=== PATIENT | female | born 1975 | race American Indian/Alaskan Native ===

== ENCOUNTER 2017-02-16 14:43 | Emergency (ER) | payer SELFPAY ==
[2017-02-16 16:29] VITALS: BP 139/77
--- NOTE | 2017-02-16 18:06 | Emergency Department Report ---
Chief Complaint: Abdominal Pain Stated Complaint: ABD PAIN/SPOTTING/7 WKS PREG. Time Seen by Provider: 02/16/17 18:03 - HPI History of Present Illness: Patient reports that she started having abdominal pain and spotting since last night. She said blood is bright red blood and small spots. She says she is 7 weeks and this is been verified by OB doctor in [place]. She is pointing to her left lower quadrant for pain. Pain is 7 out of 10. Denies any urinary burning frequency or urgency. Denies any fever. She says she is always cold. She has a history of cardiac ablation. Last menstrual period was 12/23/2016. Pain to lower abdomen is 7 out of 10 and crampy. No over-the- counter medication taken. She did not notify her CHILD CAREGIVER. - ROS Review of Systems: All systems are negative unless stated in HPI above - Exam Vital Signs: Vital Signs 02/16/17 16:26 Temperature 98.1 F Pulse Rate 75 Respiratory 16 Rate Blood Pressure 139/77 O2 Sat by Pulse 100 Oximetry Physical Exam: Gen.: This is an 41-year-old female well-nourished well-developed in no acute distress Abdomen: Tender to palpate to left pelvic area. No guarding or rebound. No peritoneal signs. Positive bowel sounds in all quadrants. MSE screening note: Focused history and physical exam performed. Due to findings the following was ordered:see MDM ED Medical Decision Making - Medical Decision Making MDM: Patient screened by provider in triage area. Appropriate protocol initiated and patient to be seen in main ED by Dr. LUO Disposition for MSE Condition: Stable Instructions: Abdominal Pain (ED)
[2017-02-16 18:56] LABS: Basophils % (Auto) 0.6 % (0.0-1.8); Eosinophils % (Auto) 2.4 % (0.0-4.3); Hematocrit 38.5 % (30.3-42.9); Hemoglobin 12.6 gm/dl (10.1-14.3); Mean Corpuscular HGB Conc 33 % (30-34); Mean Corpuscular Hemoglobin 29 pg (28-32); Mean Corpuscular Volume 89 fl (79-97); Platelet Count 283 K/mm3 (140-440); Red Blood Count 4.33 M/mm3 (3.65-5.03); Red Cell Distribution Width 13.5 % (13.2-15.2); White Blood Count 8.4 K/mm3 (4.5-11.0)
[2017-02-16 19:12] LABS: Anion Gap 14 mmol/L; BUN/Creatinine Ratio 13; Blood Urea Nitrogen 8 mg/dL (7-17); Calcium 8.9 mg/dL (8.4-10.2); Carbon Dioxide 25 mmol/L (22-30); Chloride 102.3 mmol/L (98-107); Glucose 88 mg/dL (65-100); Potassium 3.8 mmol/L (3.6-5.0); Sodium 137 mmol/L (137-145)
== END 2017-02-17 06:45 | disposition left against medical advice (07) ==
LOC: ED 14:43
DX: O26.851 Spotting complicating pregnancy, first trimester (principal); O26.891 Other specified pregnancy related conditions, first trimester; R10.32 Left lower quadrant pain; Z3A.01 Less than 8 weeks gestation of pregnancy; Z53.21 Procedure and treatment not carried out due to patient leaving prior to being seen by health care provider
CPT/HCPCS: 36415; 80048; 84702; 84703; 85025; 86850; 86900; 86901

== ENCOUNTER 2017-09-08 17:22 | Emergency (ER) | payer SELFPAY ==
--- NOTE | 2017-09-09 | Emergency Department Report ---
ED Female HPI - General Chief complaint: Back Pain/Injury Stated complaint: UPPER/LOWER BACK PAIN Time Seen by Provider: 09/08/17 23:51 Source: patient Mode of arrival: Ambulatory Limitations: No Limitations - History of Present Illness Initial comments: This is a 42 y.o. female that presents with low back pain for 2 weeks. Patient reports going to labor and deliver earlier today and brought here for evaluation. She was told last year she is having a cryptic . Reports pain to lower back that is intermittent. Her LMP 11/28/2014. She is currently spotting. She reports being and she is not crazy. Denies passing blood clots, abdominal pain, vaginal discharge, chest pain, frequency, urgency, or dysuria. MD Complaint: other (low back pain) -: week(s) (2 weeks) Radiation: non-radiating Severity: moderate Severity scale (0 -10): 7 Quality: sharp, aching Consistency: intermittent Improves with: none Worsens with: movement Are you Now?: Yes Last Menstrual Period: 11/28/14 EDC: 09/04/15 Associated Symptoms: denies: vaginal discharge, abdominal pain, nausea/vomiting , fever/chills, headaches, loss of appetite, dysuria, hematuria, seizure, shortness of breath, syncope, weakness - Related Data Sexually active: Yes : 4 Para: 3 A: 0 Previous Rx's Medication Instructions Recorded Last Taken Type Nitrofurantoin Macrocrystal 100 mg PO BID 5 Days #10 capsule 09/09/17 Unknown Rx [Macrodantin] Allergies Allergy/AdvReac Type Severity Reaction Status Date / Time No Known Allergies Allergy Verified 09/08/17 17:25 ED Review of Systems ROS: Stated complaint: UPPER/LOWER BACK PAIN Other details as noted in HPI Constitutional: denies: chills, fever Respiratory: denies: cough, shortness of breath, wheezing Cardiovascular: denies: chest pain, palpitations Gastrointestinal: denies: abdominal pain, nausea, diarrhea Genitourinary: abnormal menses (spotting every month, twice a month). denies: urgency, dysuria, frequency, discharge Musculoskeletal: back pain (low back pain). denies: joint swelling, arthralgia Skin: denies: rash, lesions Psychiatric: denies: anxiety, depression ED Past Medical Hx - Past Medical History Additional medical history: ablation - Social History Smoking Status: Never Smoker Substance Use Type: None - Medications Home Medications: Home Medications Medication Instructions Recorded Confirmed Last Taken Type Nitrofurantoin Macrocrystal 100 mg PO BID 5 Days #10 capsule 09/09/17 Unknown Rx [Macrodantin] ED Physical Exam - General Limitations: No Limitations General appearance: alert, in no apparent distress - Respiratory Respiratory exam: Present: normal lung sounds bilaterally. Absent: respiratory distress, wheezes, rales, rhonchi, stridor, accessory muscle use - Cardiovascular Cardiovascular Exam: Present: regular rate, normal rhythm, normal heart sounds. Absent: systolic murmur, diastolic murmur, rubs, gallop - GI/Abdominal GI/Abdominal exam: Present: soft, normal bowel sounds. Absent: distended, tenderness, guarding, rebound, rigid, organomegaly, mass - Back Exam Back exam: Present: normal inspection, full ROM, CVA tenderness (L). Absent: CVA tenderness (R), rash noted - Psychiatric Psychiatric exam: Present: normal affect, normal mood - Skin Skin exam: Present: warm, dry, intact, normal color. Absent: rash ED Course Vital Signs 09/08/17 09/09/17 17:25 01:47 Temperature 99.4 F 98.7 F Pulse Rate 90 67 Respiratory 18 16 Rate Blood Pressure 149/108 Blood Pressure 126/84 [Right] O2 Sat by Pulse 98 100 Oximetry ED Medical Decision Making - Medical Decision Making 42 y.o. female that presents with low back pain that is associated with cryptic . Patient examined by me and stable. No distress noted. Vitals stable. Obtained UA, hcg quant. Start nitrofurantoin 100 mg po bid x 5 days. Discharged home. Encouraged to f/u with T[facility] HOUSE OPERATOR to r/o cryptic . Critical care attestation.: If time is entered above; I have spent that time in minutes in the direct care of this critically ill patient, excluding procedure time. ED Disposition Clinical Impression: Acute cystitis Qualifiers: Hematuria presence: without hematuria Qualified Code(s): N30.00 - Acute cystitis without hematuria Disposition: TO HOME OR SELFCARE Is pt being admited?: No Does the pt Need Aspirin: No Condition: Stable Instructions: Urinary Tract Infection in Women (ED) Additional Instructions: Increase fluid intake. Follow up with primary care provider in 2-3 days. Follow up with T[facility] HOUSE [facility]. Prescriptions: Nitrofurantoin Macrocrystal [Macrodantin] 100 mg PO BID 5 Days #10 capsule Referrals: [facility] [Outside] - 3-5 Days ARIES GONZALEZ MD [Staff Physician] - 3-5 Days [facility] [Provider Group] - 3-5 Days Time of Disposition: 01:37 Print Language: CYMRAES
[2017-09-09 00:45] LABS: Bacteria,Urine 4+ /HPF (Negative); Bilirubin,Urine NEG (Negative); Blood,Urine NEG (Negative); Color,Urine Yellow (Yellow); Hyaline Casts,Urine 1 /LPF; Mucus,Urine 2+ /HPF; Protein,Urine <15 mg/dL mg/dL (Negative); Urobilinogen,Urine < 2.0 mg/dL (<2.0)
[2017-09-09 01:48] VITALS: BP 126/84
== END 2017-09-09 01:55 | disposition home or self-care (01) ==
LOC: ED 17:22
DX: N30.00 Acute cystitis without hematuria (principal)
CPT/HCPCS: 36415; 81001; 84703; 99283

== ENCOUNTER 2018-11-28 08:19 | Emergency (ER) | payer OTHER ==
[2018-11-28] MEDS ORDERED: NACL 0.9% 1000 ML 1,000 ML IV ONE (09:02)
[2018-11-28] MEDS ORDERED: ZOFRAN IV ONE (09:02)
[2018-11-28] MEDS ORDERED: MORPHINE IV ONE (09:02)
[2018-11-28 09:36] LABS: Basophils # (Auto) 0.1 K/mm3 (0.0-0.1); Basophils % (Auto) 0.5 % (0.0-1.8); Eosinophils # (Auto) 0.1 K/mm3 (0.0-0.4); Eosinophils % (Auto) 0.6 % (0.0-4.3); Hematocrit 36.2 % (30.3-42.9); Hemoglobin 12.1 gm/dl (10.1-14.3); Lymphocytes # (Auto) 1.5 K/mm3 (1.2-5.4); Mean Corpuscular HGB Conc 33 % (30-34); Mean Corpuscular Volume 86 fl (79-97); Monocytes # (Auto) 0.4 K/mm3 (0.0-0.8); Monocytes % (Auto) 3.7 % (0.0-7.3); Platelet Count 319 K/mm3 (140-440)
--- NOTE | 2018-11-28 09:54 | Emergency Department Report ---
ED General Adult HPI - General Chief complaint: Pain General Stated complaint: BODY PAIN Time Seen by Provider: 11/28/18 09:01 Source: patient, EMS Mode of arrival: Ambulatory Limitations: No Limitations - History of Present Illness Initial comments: This is a 43-year-old female nontoxic, well nourished in appearance, no acute signs of distress presents to the ED with c/o of generalized body aches and nausea 2 days. Patient denies any vomiting. Patient denies any cough or urinary symptoms. Denies any other complaints. Patient denies any abdominal pain, chest pain, short of breath, fever, chills, headache, stiff neck, numbness or tingling. Patient denies any diarrhea or constipation. Patient denies any recent travels. Patient denies any drug allergies significant past medical history. -: days(s) (2) Radiation: non-radiation Severity scale (0 -10): 8 Quality: aching Consistency: constant Improves with: none Worsens with: none Associated Symptoms: nausea/vomiting. denies: confusion, chest pain, cough, diaphoresis, fever/chills, headaches, loss of appetite, malaise, rash, seizure, shortness of breath, syncope, weakness Treatments Prior to Arrival: none - Related Data Previous Rx's Medication Instructions Recorded Last Taken Type Ibuprofen [Motrin 800 MG tab] 800 mg PO Q8H PRN #20 tablet 06/03/15 Unknown Rx Nitrofurantoin Macrocrystal 100 mg PO BID 5 Days #10 capsule 09/09/17 Unknown Rx [Macrodantin] Ibuprofen [Motrin] 600 mg PO Q8H PRN #20 tablet 11/28/18 Unknown Rx Ondansetron [Zofran Odt] 4 mg PO Q8HR PRN #20 tab.rapdis 11/28/18 Unknown Rx Allergies Allergy/AdvReac Type Severity Reaction Status Date / Time No Known Allergies Allergy Verified 09/08/17 17:25 ED Review of Systems ROS: Stated complaint: BODY PAIN Other details as noted in HPI Constitutional: denies: chills, fever Eyes: denies: eye pain, eye discharge, vision change ENT: denies: ear pain, throat pain Respiratory: denies: cough, shortness of breath, wheezing Cardiovascular: denies: chest pain, palpitations Endocrine: no symptoms reported Gastrointestinal: nausea. denies: abdominal pain, diarrhea Genitourinary: denies: urgency, dysuria, discharge Musculoskeletal: denies: back pain, joint swelling, arthralgia Skin: denies: rash, lesions Neurological: denies: headache, weakness, paresthesias Psychiatric: denies: anxiety, depression Hematological/Lymphatic: denies: easy bleeding, easy bruising ED Past Medical Hx - Past Medical History Previous Medical History?: Yes Hx Hypertension: Yes Hx Diabetes: No Hx Deep Vein Thrombosis: No Hx Renal Disease: No Hx Sickle Cell Disease: No Hx Seizures: No Hx Asthma: No Hx HIV: No Additional medical history: ablation - Surgical History Past Surgical History?: Yes Additional Surgical History: heart ablation - Social History Smoking Status: Never Smoker Substance Use Type: None - Medications Home Medications: Home Medications Medication Instructions Recorded Confirmed Last Taken Type Ibuprofen [Motrin 800 MG tab] 800 mg PO Q8H PRN #20 tablet 06/03/15 Unknown Rx Nitrofurantoin Macrocrystal 100 mg PO BID 5 Days #10 capsule 09/09/17 Unknown Rx [Macrodantin] Ibuprofen [Motrin] 600 mg PO Q8H PRN #20 tablet 11/28/18 Unknown Rx Ondansetron [Zofran Odt] 4 mg PO Q8HR PRN #20 tab.rapdis 11/28/18 Unknown Rx ED Physical Exam - General Limitations: No Limitations General appearance: alert, in no apparent distress - Head Head exam: Present: atraumatic, normocephalic - Neck Neck exam: Present: normal inspection, full ROM. Absent: tenderness, meningismus, lymphadenopathy - Respiratory Respiratory exam: Present: normal lung sounds bilaterally. Absent: respiratory distress, wheezes, rales, rhonchi, stridor, chest wall tenderness, accessory muscle use, decreased breath sounds, prolonged expiratory - Cardiovascular Cardiovascular Exam: Present: regular rate, normal rhythm, normal heart sounds. Absent: bradycardia, tachycardia, irregular rhythm, systolic murmur, diastolic murmur, rubs, gallop - GI/Abdominal GI/Abdominal exam: Present: soft, normal bowel sounds. Absent: distended, tenderness, guarding, rebound, rigid, diminished bowel sounds - Extremities Exam Extremities exam: Present: normal inspection, full ROM, normal capillary refill. Absent: tenderness - Back Exam Back exam: Present: normal inspection, full ROM. Absent: tenderness, CVA tenderness (R), CVA tenderness (L), muscle spasm, paraspinal tenderness, vertebral tenderness, rash noted - Neurological Exam Neurological exam: Present: alert, oriented X3, normal gait - Psychiatric Psychiatric exam: Present: normal affect, normal mood - Skin Skin exam: Present: warm, dry, intact, normal color. Absent: rash ED Course Vital Signs 11/28/18 11/28/18 11/28/18 08:47 09:42 09:46 Temperature 98.3 F Pulse Rate 74 Respiratory 18 20 20 Rate Blood Pressure 137/87 O2 Sat by Pulse 98 Oximetry - Reevaluation(s) Reevaluation #1: 11/28/18 09:55 Patient is speaking in full sentences with no signs of distress noted. ED Medical Decision Making - Lab Data Result diagrams: 11/28/18 09:22 11/28/18 09:22 - Medical Decision Making This is a 43-year-old female that presents with nausea and generalized body aches. Patient is stable and was examined by me. There is no abdominal tenderness. Negative signs of symptoms of appendicitis. Labs obtained. UA obtained. Chest/abdomen xray obtained and dictated by the radiologist. Patient is notified of the report with no questions noted by the patient. Vital signs are stable prior to discharge. Patient received Zofran, morphine, and 1L Normal saline in the ED which patient stated symptoms has resolved and subsided. A by mouth challenge has been obtained and patient tolerated well with no nausea vomiting. Patient was also instructed to Follow-up with a primary care doctor in 3-5 days or if symptoms worsen and continue return to emergency room as soon as possible. At time of discharge, the patient does not seem toxic or ill in appearance. No acute signs of distress noted. Patient agrees to discharge treatment plan of care. No further questions noted by the patient. Critical care attestation.: If time is entered above; I have spent that time in minutes in the direct care of this critically ill patient, excluding procedure time. ED Disposition Clinical Impression: Generalized body aches, Nausea Disposition: [id number]-01 TO HOME OR SELFCARE Is pt being admited?: No Does the pt Need Aspirin: No Condition: Stable Additional Instructions: Follow-up with a primary care doctor in 3-5 days or if symptoms worsen and continue return to emergency room as soon as possible. Prescriptions: Ibuprofen [Motrin] 600 mg PO Q8H PRN #20 tablet PRN Reason: Pain/Fever Ondansetron [Zofran Odt] 4 mg PO Q8HR PRN #20 tab.rapdis PRN Reason: Nausea [facility] [Primary Care Provider[facility] - 3-5 Days [facility] [Referring] - 3-5 Days QUITA PARK MD [Staff Physician] - 3-5 Days [facility] [Outside] - 3-5 Days [facility] [Outside] - 3-5 Days Forms: Work/School Release Form(ED)
[2018-11-28 10:01] LABS: Alanine Aminotransferase 7 units/L (7-56); Albumin 3.8 g/dL (3.9-5); BUN/Creatinine Ratio 11; Blood Urea Nitrogen 9 mg/dL (7-17); Calcium 8.7 mg/dL (8.4-10.2); Hemolysis Index 5
[2018-11-28 10:52] LABS: Bacteria,Urine 1+ /HPF (Negative); Bilirubin,Urine NEG (Negative); Blood,Urine MOD (Negative); Color,Urine Yellow (Yellow); Mucus,Urine FEW /HPF; Protein,Urine <15 mg/dL mg/dL (Negative); Urobilinogen,Urine < 2.0 mg/dL (<2.0)
--- NOTE | 2018-11-28 12:43 | XRay Report ---
Acute abdomen series 3 views 1123 INDICATION: Nausea, vomiting, headache Lung suazo are clear. Heart size and pulmonary vascularity appear within normal limits. No pneumoper itoneum is seen. Calcifications in the left pelvis probably are vascular. Upright views show no air-f luid levels. Mild increase in small bowel gas is noted with borderline dilatation seen. Gas is noted in the colon. Bowel gas pattern is nonspecific and not clearly obstructive. Signer Name: John Kinsey MD Signed: 11/28/2018 12:39 PM Workstation Name: [email or web address]
[2018-11-28 13:09] VITALS: BP 140/73
== END 2018-11-28 13:33 | disposition home or self-care (01) ==
LOC: ED 08:19
DX: M79.10 Myalgia, unspecified site (principal); R11.2 Nausea with vomiting, unspecified; I10 Essential (primary) hypertension; Z79.899 Other long term (current) drug therapy
CPT/HCPCS: 36415; 74022; 80053; 81001; 83690; 84703; 85025; 96374; 96375; 99284; J2270; J2405; J7030

== ENCOUNTER 2020-03-29 12:33 | Emergency (ER) | payer SELFPAY ==
[2020-03-29 12:51] VITALS: BP 155/102
--- NOTE | 2020-03-29 12:54 | Event Note ---
ED Screening Note Date of service: 03/29/20 Time: 12:53 ED Screening Note: Patient complains of palpitations and shortness of breath History of lesion due to irregular heartbeat per patient States mild pain beneath the left breast This initial assessment/diagnostic orders/clinical plan/treatment(s) is/are subject to change based on patients health status, clinical progression and re- assessment by fellow clinical providers in the ED. Further treatment and workup at subsequent clinical providers discretion. Patient/guardian urged not to elope from the ED as their condition may be serious if not clinically assessed and managed. Initial orders include: Labs EKG Chest x-ray
--- NOTE | 2020-03-29 13:36 | XRay Report ---
CHEST 2 VIEWS INDICATION / CLINICAL INFORMATION: Shortness of breath, palpitations. COMPARISON: None available. FINDINGS: SUPPORT DEVICES: None. HEART / MEDIASTINUM: No significant abnormality. LUNGS / PLEURA: No significant pulmonary or pleural abnormality. No pneumothorax. ADDITIONAL FINDINGS: No significant additional findings. IMPRESSION: 1. No acute findings. Signer Name: Harman Jacome MD Signed: 03/29/2020 1:32 PM Workstation Name: [email or web address]
== END 2020-03-29 13:00 | disposition left against medical advice (07) ==
LOC: ED 12:33
DX: R00.2 Palpitations (principal); Z53.21 Procedure and treatment not carried out due to patient leaving prior to being seen by health care provider
CPT/HCPCS: 71046; 93005